=== PATIENT | female | born 1955 | race Caucasian/White ===

== ENCOUNTER 2016-07-01 12:33 | Emergency (ER) | payer OTHER ==
[2016-07-01 12:36] VITALS: TEMP 98; BMI 25.0
[2016-07-01] MEDS ORDERED: ONDANSETRON 4 MG/2 ML VIAL IVPUSH ONE (13:19)
[2016-07-01] MEDS ORDERED: SODIUM CHLORIDE 1,000 ML IV STA ×2 (13:19→16:45)
--- NOTE | 2016-07-01 13:19 | PDOC ---
History of Present Illness - General History Source: Patient Exam Limitations: No Limitations - History of Present Illness Initial Comments: 07/01/16 13:27 The patient is a 60 year old female, with no significant past medical history, who presents to the emergency department complaining of dizziness and nausea since approximately 11:45. The patient reports she was sitting eating a meal when suddenly she began to feel dizzy and nauseous. Patient reports vomiting secondary to nausea and dizziness. She describes her dizziness as if the room was spinning. She reports her symptoms are exacerbated when turning her head. The patient does not report any changes in vision or headache. She denies any abdominal pain, diarrhea, constipation, or changes in urination patterns. The patient denies any chest pain, shortness of breath, diaphoresis, or palpitations. Allergies: None reported. Past Surgical History: None reported. Social History: Non-smoker. Denies alcohol or drug use. PCP: Dr. Ness <Chance Black - Last Filed: 07/01/16 13:51> <Faye Luciano - Last Filed: 07/04/16 07:32> - General Chief Complaint: Lightheaded Stated Complaint: DIZZINESS, VOMITING Time Seen by Provider: 07/01/16 12:52 Past History <Chance Black - Last Filed: 07/01/16 13:51> - Past Medical History Anemia: No Asthma: No Cancer: No Cardiac Disorders: No HTN: Yes (?) - Surgical History Abdominal Surgery: No Appendectomy: No Cardiac Surgery: No Cholecystectomy: No - Psycho/Social/Smoking Cessation Hx Anxiety: No Suicidal Ideation: No Smoking Status: No Smoking History: Never smoked Number of Cigarettes Smoked Daily: 0 Hx Alcohol Use: No Drug/Substance Use Hx: No Substance Use Type: None <Faye Luciano - Last Filed: 07/04/16 07:32> - Past Medical History Allergies/Adverse Reactions: Allergies Allergy/AdvReac Type Severity Reaction Status Date / Time No Known Allergies Allergy Verified 07/01/16 12:36 Home Medications: Ambulatory Orders Quetiapine Fumarate [Seroquel] 200 mg PO BID 11/03/11 Risperidone [Risperdal M-Tab] 2 mg PO DAILY 11/03/11 Zolpidem Tartrate [Ambien] 10 mg PO DAILY 11/03/11 Cephalexin [Keflex] 500 mg PO BID #14 capsule 07/01/16 Diazepam [Valium] 5 mg PO Q8H PRN #9 tablet MDD 3 tabs 07/01/16 Review of Systems - Review of Systems Able to Perform ROS?: Yes Comments:: 07/01/16 13:28 GENERAL/CONSTITUTIONAL: No fever or chills. No weakness. HEAD, EYES, EARS, NOSE AND THROAT: No change in vision. No ear pain or discharge. No sore throat. CARDIOVASCULAR: No chest pain or shortness of breath. RESPIRATORY: No cough, wheezing, or hemoptysis. GASTROINTESTINAL: Yes: +nausea, +vomiting. No diarrhea or constipation. GENITOURINARY: No dysuria, frequency, or change in urination. MUSCULOSKELETAL: No joint or muscle swelling or pain. No neck or back pain. SKIN: No rash NEUROLOGIC: Yes: +dizziness, +vertigo. No headache, loss of consciousness, or change in strength/sensation. ENDOCRINE: No increased thirst. No abnormal weight change. HEMATOLOGIC/LYMPHATIC: No anemia, easy bleeding, or history of blood clots. ALLERGIC/IMMUNOLOGIC: No hives or skin allergy. <Chance Black - Last Filed: 07/01/16 13:51> *Physical Exam - Vital Signs Last Vital Signs Temp Pulse Resp BP Pulse Ox 98.0 F 73 20 156/102 96 07/01/16 12:34 07/01/16 12:34 07/01/16 12:34 07/01/16 12:34 07/01/16 12:34 - Physical Exam Comments: 07/01/16 13:28 GENERAL: Patient appears uncomfortable and covering her eyes. Symptoms elicited by turning head. Awake, alert, and fully oriented. HEAD: No signs of trauma EYES: PERRLA, EOMI, sclera anicteric, conjunctiva clear ENT: Auricles normal inspection, hearing grossly normal, nares patent, oropharynx clear without exudates. Dry mucosa. TMs normal bilaterally NECK: Normal ROM, supple, no lymphadenopathy, JVD, or masses LUNGS: Breath sounds equal, clear to auscultation bilaterally. No wheezes, and no crackles HEART: Regular rate and rhythm, normal S1 and S2, no murmurs, rubs or gallops ABDOMEN: Soft, nontender, normoactive bowel sounds. No guarding, no rebound. No masses EXTREMITIES: Normal range of motion, no edema. No clubbing or cyanosis. No cords, erythema, or tenderness NEUROLOGICAL: Cranial nerves II through XII grossly intact. Normal speech, normal gait SKIN: Warm, Dry, normal turgor, no rashes or lesions noted. <Chance Black - Last Filed: 07/01/16 13:51> - Vital Signs Last Vital Signs Temp Pulse Resp BP Pulse Ox 98.0 F 73 20 156/102 96 07/01/16 12:34 07/01/16 12:34 07/01/16 12:34 07/01/16 12:34 07/01/16 12:34 <Faye Luciano - Last Filed: 07/04/16 07:32> Heart Score/ECG Review - ECG Impressions Comment:: EKG read 12:56- NSR 69 bpm, no acute ST/T changes <Faye Luciano - Last Filed: 07/04/16 07:32> ED Treatment Course - LABORATORY CBC & Chemistry Diagram: 07/01/16 13:20 07/01/16 13:20 <Chance Black - Last Filed: 07/01/16 13:51> - LABORATORY CBC & Chemistry Diagram: 07/01/16 13:20 07/01/16 13:20 <Faye Luciano - Last Filed: 07/04/16 07:32> Medical Decision Making - Medical Decision Making Pt with BPPV, improved with zofran and meclizine, but incomplete resolution of symptoms. She improved significantly with valium. Treated for UTI. Stable for DC home. <Faye Luciano - Last Filed: 07/04/16 07:32> *DC/Admit/Observation/Transfer - Attestations Scribe Attestion: 07/01/16 13:29 Documentation prepared by Chance Black, acting as manager medical affairs for Faye Luciano MD. <Chance Black - Last Filed: 07/01/16 13:51> - Discharge Dispostion Admit: No <Faye Luciano - Last Filed: 07/04/16 07:32> Diagnosis at time of Disposition: Vertigo - Discharge Dispostion Disposition: HOME Condition at time of disposition: Improved - Prescriptions Prescriptions: Cephalexin [Keflex] 500 mg PO BID #14 capsule Diazepam [Valium] 5 mg PO Q8H PRN #9 tablet MDD 3 tabs PRN Reason: Vertigo - Referrals Referrals: Christiano Ness MD [Primary Care Provider] - - Patient Instructions Printed Discharge Instructions: DI for Vertigo, DI for Urinary Tract Infection (UTI) Print Language: LITHUANIAN
[2016-07-01] MEDS ORDERED: ONDANSETRON 4 MG/2 ML VIAL ONE (13:24)
[2016-07-01 13:27] LABS: EOSINOPHIL 3.1 % (0-4.5); MCH 30.9 pg (25.7-33.7); MCHC 34.4 g/dl (32.0-36.0); MEAN CELL VOLUME 89.8 fl (80-96); MEAN PLT VOLUME 8.2 fl (7.5-11.1); NEUTROPHILS 42.2 % (42.8-82.8); PLATELET COUNT 218 K/MM3 (134-434); WHITE BLOOD COUNT 10.4 K/mm3 (4.0-10.0)
[2016-07-01 13:52] LABS: ALBUMIN 4.2 g/dl (3.4-5.0); ANION GAP 13 (8-16); BILIRUBIN,TOTAL 0.6 mg/dL (0.2-1.0); CO2 23 mmol/L (21-32); CREATININE 0.9 mg/dL (0.55-1.02); GLUCOSE,RANDOM 122 mg/dL (74-106); SGOT/AST 67 U/L (15-37); SGPT/ALT 65 U/L (12-78); TOT PROT 7.8 g/dl (6.4-8.2)
[2016-07-01 13:53] LABS: ALK PHOS 136 U/L (45-117)
[2016-07-01] MEDS ORDERED: MECLIZINE HCL 25 MG TABLET (FP) ONE (15:48)
[2016-07-01] MEDS ORDERED: MECLIZINE HCL 25 MG TABLET (FP) PO ONE (15:48)
[2016-07-01 16:39] LABS: URINE APPEARANCE CLEAR; URINE BILIRUBIN NEGATIVE (NEGATIVE); URINE BLOOD NEGATIVE (NEGATIVE); URINE COLOR STRAW; URINE GLUCOSE (UA) NEGATIVE (NEGATIVE); URINE KETONE NEGATIVE (NEGATIVE); URINE NITRITE NEGATIVE (NEGATIVE); URINE PROTEIN NEGATIVE (NEGATIVE); URINE UROBILINOGEN NEGATIVE E.U./dl (0.2-1.0)
[2016-07-01 16:40] LABS: URINE LEUK ESTERASE 3+ (NEGATIVE)
[2016-07-01 16:42] LABS: URINE RBC 4 /hpf (0-3); URINE WBC 80 /hpf (3-5)
[2016-07-01] MEDS ORDERED: CEFTRIAXONE 1 GM in DEXTROSE 5%-WATER - 50 ML IVPB ONE (16:45)
[2016-07-01] MEDS ORDERED: CEFTRIAXONE 50 ML ONE (16:47)
[2016-07-01] MEDS ORDERED: diazePAM 5 MG TABLET PO ONE (17:42)
[2016-07-01] MEDS ORDERED: diazePAM 5 MG TABLET ONE (18:05)
[2016-07-01 18:56] VITALS: BP 144/99; PULSE 70
--- NOTE | 2016-07-03 13:39 | EKG ---
Test Reason : Blood Pressure : / mmHG Vent. Rate : 069 BPM Atrial Rate : 069 BPM P-R Int : 174 ms QRS Dur : 086 ms QT Int : 418 ms P-R-T Axes : 041 026 042 degrees QTc Int : 447 ms NORMAL SINUS RHYTHM NORMAL ECG WHEN COMPARED WITH ECG OF 18-DEC-2002 13:12, NO SIGNIFICANT CHANGE WAS FOUND Confirmed by BARRON GREENBERG MD ([id number]) on 07/03/2016 1:39:10 PM Referred By: Confirmed By:BARRON GREENBERG MD
== END 2016-07-01 19:11 | disposition home or self-care (01) ==
LOC: JER 12:33
PROC: 3E03329 Introduction of Other Anti-infective into Peripheral Vein, Percutaneous Approach (ICD-10-PCS; principal; 2016-07-01)
PROC: 3E033GC Introduction of Other Therapeutic Substance into Peripheral Vein, Percutaneous Approach (ICD-10-PCS; 2016-07-01)
DX: N39.0 Urinary tract infection, site not specified (principal); R11.2 Nausea with vomiting, unspecified
CPT/HCPCS: 36415; 80053; 81003; 81015; 85025; 93005; 93010; 99283-25

== ENCOUNTER 2019-04-10 07:18 | Emergency (ER) | payer OTHER ==
[2019-04-10 07:36] VITALS: BP 128/67; PULSE 79; TEMP 98.1; BMI 30.7
--- NOTE | 2019-04-10 07:54 | PDOC ---
History of Present Illness - General Chief Complaint: Pain Stated Complaint: PAIN RIGHT UPPER BREAST AREA Time Seen by Provider: 04/10/19 07:38 History Source: Patient Exam Limitations: Clinical Condition - History of Present Illness Initial Comments: 04/10/19 07:58 Patient with no significant past medical history present with complaint of one day history of burning sensation to lateral aspect of right breast radiating to right upper back since yesterday. Patient reported feeling no tingling sensation along the line of the lateral aspect of right breast radiating to right upper back with itching. Denies any rash, breast pain, fever, chills. Denies any other symptoms. Report last mammogram 5 months ago which was normal. Denies any other symptoms Is this a multiple visit Asthma Patient?: No Timing/Duration: 24 hours Past History - Past Medical History Allergies/Adverse Reactions: Allergies Allergy/AdvReac Type Severity Reaction Status Date / Time No Known Allergies Allergy Verified 07/01/16 12:36 Home Medications: Ambulatory Orders Quetiapine Fumarate [Seroquel] 200 mg PO HS 11/03/11 Risperidone [Risperdal M-Tab] 2 mg PO HS 11/03/11 Zolpidem Tartrate [Ambien] 10 mg PO HS PRN 11/03/11 Rosuvastatin Calcium [Crestor] 5 mg PO HS 04/10/19 Valacyclovir HCl [Valtrex -] 1,000 mg PO TID 7 Days #21 tablet 04/10/19 predniSONE [Deltasone -] 40 mg PO DAILY #5 tablet 04/10/19 Anemia: No Asthma: No Cancer: No Cardiac Disorders: No COPD: No HTN: Yes (?) Psychiatric Problems: Yes - Surgical History Abdominal Surgery: No Appendectomy: No Cardiac Surgery: No Cholecystectomy: No - Psycho Social/Smoking Cessation Hx Smoking Status: No Smoking History: Never smoked Number of Cigarettes Smoked Daily: 0 Hx Alcohol Use: No Drug/Substance Use Hx: No Substance Use Type: None Review of Systems - Review of Systems Able to Perform ROS?: Yes Is the patient limited Greenlandic proficient: No Constitutional: No: Chills, Fever, Malaise HEENTM: No: Symptoms Reported, See HPI, Eye Pain, Blurred Vision, Tearing, Recent change in vision, Double Vision, Cataracts, Ear Pain, Ocular Prothesis, Ear Discharge, Nose Pain, Nose Congestion, Tinnitus, Nose Bleeding, Hearing Loss , Throat Pain, Throat Swelling, Mouth Pain, Dental Problems, Difficulty Swallowing, Mouth Swelling, Other Respiratory: No: Symptoms reported, See HPI, Cough, Orthopnea, Shortness of Breath, SOB with Exertion, SOB at Rest, Stridor, Wheezing, Productive cough, Hemoptysis, Other Cardiac (ROS): No: Symptoms Reported, See HPI, Chest Pain, Edema, Irregular Heart Rate, Lightheadedness, Palpitations, Syncope, Chest Tightness, Other ABD/GI: No: Symptoms Reported, See HPI, Nausea, Vomiting Musculoskeletal: Yes: Symptoms Reported, See HPI, Muscle Pain (burning sensation to right side of lateral part of right breast) Integumentary: Yes: Symptoms Reported, See HPI. No: Rash Neurological: Yes: Symptoms reported, See HPI, Tingling (lateral aspect of right breast radiating to upper back). No: Paresthesia, Pre-Existing Deficit, Unsteady Gait All Other Systems: Reviewed and Negative *Physical Exam - Vital Signs Last Vital Signs Temp Pulse Resp BP Pulse Ox 98.1 F 79 16 128/67 95 04/10/19 07:29 04/10/19 07:29 04/10/19 07:29 04/10/19 07:29 04/10/19 07:29 - Physical Exam 04/10/19 08:03 GENERAL: Well developed, well nourished. Awake and alert. No acute distress. HEENT: Normocephalic, atraumatic. PERRLA, EOMI. No conjunctival pallor. Sclera are non-icteric. Moist mucous membranes. Oropharynx is clear. NECK: Supple. Full ROM. CARDIOVASCULAR: Regular rate and rhythm. No murmurs, rubs, or gallops. Distal pulses are 2+ and symmetric. PULMONARY: No evidence of respiratory distress. Lungs clear to auscultation bilaterally. No wheezing, rales or rhonchi. ABDOMINAL: Soft. Non-tender. Non-distended. No rebound or guarding. No organomegaly. Normoactive bowel sounds. MUSCULOSKELETAL Normal range of motion at all joints. No tenderness to right breast or right upper back. SKIN: Warm and dry. Normal capillary refill. No rashes. No visible lesions. Mild excoriation to skin of lateral aspect of right breast and right upper back from scratching. No open wounds. NEUROLOGICAL: Alert, awake, appropriate. Gait is normal without ataxia. PSYCHIATRIC: Cooperative. Good eye contact. Appropriate mood General Appearance: Yes: Nourished, Appropriately Dressed. No: Apparent Distress Medical Decision Making - Medical Decision Making 04/10/19 07:59 Patient with no significant past medical history present with complaint of one day history of burning sensation to lateral aspect of right breast radiating to right upper back since yesterday. Patient reported feeling no tingling sensation along the line of the lateral aspect of right breast radiating to right upper back with itching. Denies any rash, breast pain, fever, chills. Denies any other symptoms. Report last mammogram 5 months ago which was normal. Denies any other symptoms Exam significant for mild excoriation to skin of lateral aspect of right breast from scratching and right upper back. No visible lesion or rash. No tenderness to right breast or skin of right breast or upper back. Symptoms likely oncoming herpes zoster. Patient will be treated on Valtrex 1000mg 3 times daily for a week and prednisone with PCP follow-up Discharge - Discharge Information Problems reviewed: Yes Clinical Impression/Diagnosis: Zoster Qualifiers: Herpes zoster complications: without complications Qualified Code(s): B02.9 - Zoster without complications Condition: Stable Disposition: HOME - Admission No - Additional Discharge Information Prescriptions: predniSONE [Deltasone -] 40 mg PO DAILY #5 tablet Valacyclovir HCl [Valtrex -] 1,000 mg PO TID 7 Days #21 tablet - Follow up/Referral Referrals: Baylee Jiang MD [Primary Care Provider] - - Patient Discharge Instructions Patient Printed Discharge Instructions: DI for Shingles Additional Instructions: Your symptoms likely caused by oncoming shingles. Take prescribed medication as prescribed. Follow-up with primary care as needed - Post Discharge Activity Work/Back to School Note: Back to Work
== END 2019-04-10 08:00 | disposition home or self-care (01) ==
LOC: JER 07:18
DX: B02.9 Zoster without complications (principal); F99 Mental disorder, not otherwise specified
CPT/HCPCS: 99283-25

== ENCOUNTER 2019-05-23 15:52 | Emergency (ER) | payer OTHER ==
[2019-05-23 16:09] VITALS: BP 132/91; PULSE 90; TEMP 98.8
--- NOTE | 2019-05-23 16:11 | PDOC ---
Rapid Medical Evaluation Time Seen by Provider: 05/23/19 16:06 Medical Evaluation: Allergies Allergy/AdvReac Type Severity Reaction Status Date / Time No Known Allergies Allergy Verified 07/01/16 12:36 05/23/19 16:06 HPI: COVID-19 CDC guideline data points: The patient is a 63yo F presents with suspected COVID-19 with associated symptoms of subjective fever without comorbidities. ROS: NEGATIVE: difficulty breathing, shortness of breath, chest pain, lightheadedness, dizziness, nausea, vomiting and diarrhea. Other 12 point ROS reviewed and negative. Exam: General: NAD, Well-Appearing, Awake, Alert Oriented x3. Vital signs stable. ENT: No rhinorrhea or nasal congestion. Neck: FROM, no midline tenderness. Lungs: Clear to auscultation bilaterally without wheezes, rhonchi or rales. Normal excursion. Patient is able to speak in full sentences. Heart: HR-90 Regular rhythm, S1-S2 present, no murmurs rubs or gallops. Abdomen: Non-distended. MSK/Extremities: No decrease ROM, No obvious deformities. No obvious cyanosis noted. Neuro: Normal Gait, Cranial Nerves II through XII Grossly Intact. Skin: No obvious rashes, bruising. Color Normal Appearing. Assessment/Plan: fever Patient has no history and denies recent travel and known COVID exposure. Patient does not meet testing criteria at this time. ASSESSMENT: Denies recent travel and known Covid exposure. Treatment: T-98.8 Discharge home to f/u with PMD. Discharge Disposition - Diagnosis Fever Qualifiers: Fever type: unspecified Qualified Code(s): R50.9 - Fever, unspecified - Discharge Dispostion Disposition: HOME Condition at time of disposition: Stable Decision to Admit order: No - Referrals - Patient Instructions Printed Discharge Instructions: [facility]-Coronavirus Instructions, [facility] COVID-19 Isolation Protocol Additional Instructions: You were seen for your cough and possible Coronavirus (COVID-19) Please call the [facility] testing center to make an appointment at or you can call [facility] at from 8:30 AM to 6 PM; or you can visit the [facility] website: [email or web address] for more information about testing at the [facility]. Take Tylenol 650 mg every 6 hours as needed for fever or pain. You may take Robitussin or other [id number] cough syrup. Follow the dosing instructions on the bottle. Warm tea, honey, and salt water gargles may help your symptoms. Please take precautions and self quarantine for 2 weeks and follow-up with your primary care doctor and the Department of Health. Return to the nearest emergency department for shortness of breath, difficulty breathing, chest pain, or if you have any changes in your symptoms. - Post Discharge Activity
== END 2019-05-23 17:04 ==
LOC: JER 15:52
DX: R50.9 Fever, unspecified (principal)
CPT/HCPCS: 99282-25

== ENCOUNTER 2019-09-02 13:27 | Emergency (ER) | payer OTHER ==
[2019-09-02 13:32] VITALS: BP 156/82; PULSE 73; TEMP 98.4; BMI 30.9
[2019-09-02] MEDS ORDERED: NAPROXEN 500 MG TABLET PO ONE (14:12)
[2019-09-02] MEDS ORDERED: METHOCARBAMOL 500 MG TABLET PO ONE (14:12)
[2019-09-02] MEDS ORDERED: NAPROXEN 500 MG TABLET ONE (14:13)
[2019-09-02] MEDS ORDERED: METHOCARBAMOL 500 MG TABLET ONE (14:13)
--- NOTE | 2019-09-02 14:20 | PDOC ---
History of Present Illness - General Chief Complaint: Pain, Acute Stated Complaint: RT LEG PAIN Time Seen by Provider: 09/02/19 13:35 History Source: Patient Exam Limitations: Clinical Condition - History of Present Illness Initial Comments: 09/02/19 14:17 Patient with no significant past medical history present with complaint of cramping pain to medial aspect of right thigh muscle status post going downstairs and overextending right leg. Patient reported increased pain to medial side of right calf muscle with ambulation. Denies fall. Patient did not take anything for symptoms. Denies any other symptoms Occurred: reports: this morning Past History - Medical History Allergies/Adverse Reactions: Allergies Allergy/AdvReac Type Severity Reaction Status Date / Time No Known Allergies Allergy Verified 09/02/19 14:12 Home Medications: Ambulatory Orders Quetiapine Fumarate [Seroquel] 200 mg PO HS 11/03/11 Risperidone [Risperdal M-Tab] 2 mg PO HS 11/03/11 Zolpidem Tartrate [Ambien] 10 mg PO HS PRN 11/03/11 Rosuvastatin Calcium [Crestor] 5 mg PO HS 04/10/19 Valacyclovir HCl [Valtrex -] 1,000 mg PO TID 7 Days #21 tablet 04/10/19 predniSONE [Deltasone -] 40 mg PO DAILY #5 tablet 04/10/19 Meloxicam 7.5 mg PO BID PRN #12 tablet 09/02/19 Methocarbamol [Robaxin -] 500 mg PO BID PRN #10 tablet 09/02/19 Anemia: No Asthma: No Cancer: No Cardiac Disorders: No COPD: No HTN: Yes (?) Psychiatric Problems: Yes - Surgical History Abdominal Surgery: No Appendectomy: No Cardiac Surgery: No Cholecystectomy: No - Immunization History Immunization Up to Date: No - Psycho-Social/Smoking History Smoking Status: No Smoking History: Never smoked Have you smoked in the past 12 months: No Number of Cigarettes Smoked Daily: 0 Information on smoking cessation initiated: No - Substance Abuse Hx (Audit-C & DAST Scrn) How often the patient has a drink containing alcohol: Never Score: In Men: 4 or > Positive; In Women: 3 or > Positive: 0 Screen Result (Pos requires Nsg. Audit-10AR): Negative In the last yr the pt used illegal drug/Rx for NonMed reason: No Score: Yes response is considered Positive: 0 Screen Result (Positive result requires Nsg. DAST-10): Negative Review of Systems - Review of Systems Able to Perform ROS?: Yes Is the patient limited Mosotho proficient: No Constitutional: No: Chills, Fever, Malaise HEENTM: No: Symptoms Reported Respiratory: No: Symptoms reported, See HPI, Cough, Orthopnea, Shortness of Breath, SOB with Exertion, SOB at Rest, Stridor, Wheezing, Productive cough, Hemoptysis, Other Cardiac (ROS): No: Symptoms Reported, See HPI, Chest Pain, Edema, Irregular Heart Rate, Lightheadedness, Palpitations, Syncope, Chest Tightness, Other ABD/GI: No: Symptoms Reported Musculoskeletal: Yes: Symptoms Reported, See HPI, Muscle Pain (Right calf muscle pain). No: Joint Swelling, Joint Stiffness Integumentary: No: Symptoms Reported, Bruising, Change in Color, Flushing Neurological: No: Symptoms reported, Numbness, Paresthesia, Tingling, Weakness All Other Systems: Reviewed and Negative *Physical Exam - Vital Signs Last Vital Signs Temp Pulse Resp BP Pulse Ox 98.4 F 73 16 156/82 97 09/02/19 13:29 09/02/19 13:29 09/02/19 13:29 09/02/19 13:29 09/02/19 13:29 - Physical Exam 09/02/19 14:20 GENERAL: Well developed, well nourished. Awake and alert in mild acute distress. CARDIOVASCULAR: Regular rate and rhythm. No murmurs, rubs, or gallops. PULMONARY: No evidence of respiratory distress. Lungs clear to auscultation bilaterally. No wheezing, rales or rhonchi. MUSCULOSKELETAL : mild tenderness over posterior medial aspect of right calf muscle. No tenderness to lateral aspect of calf muscle. Negative Homans sign. Negative Lockett test. No swelling to calf muscle. No bony deformities EXTREMITIES: No cyanosis. No clubbing. No edema. Mild tenderness to medial aspect of right calf muscle and no lateral calf tenderness. SKIN: Warm and dry. Normal capillary refill. No rashes. No increased warmth or skin erythema to right leg NEUROLOGICAL: Alert, awake, appropriate. No motor deficits in the lower extremities. Gait is normal without ataxia. PSYCHIATRIC: Cooperative. Good eye contact. Appropriate mood and affect. General Appearance: Yes: Nourished, Appropriately Dressed, Mild Distress ED Treatment Course - RADIOLOGY Radiology Studies Ordered: Category Date Time Status LEG TIB/FIB-RIGHT [RAD] Stat Radiology 09/02/19 14:12 Ordered - Medications Given in the ED: ED Medications Discontinued Medications Generic Name Dose Route Start Last Admin Trade Name Petersonq PRN Reason Stop Dose Admin Methocarbamol 500 mg 09/02/19 14:12 09/02/19 14:14 Robaxin - PO 09/02/19 14:13 500 mg ONCE ONE Administration Naproxen 500 mg 09/02/19 14:12 09/02/19 14:14 Naprosyn - PO 09/02/19 14:13 500 mg ONCE ONE Administration Medical Decision Making - Medical Decision Making 09/02/19 14:18 Patient with no significant past medical history present with complaint of cramping pain to medial aspect of right thigh muscle status post going downstairs and overextending right leg. Patient reported increased pain to medial side of right calf muscle with ambulation. Denies fall. Patient did not take anything for symptoms. Denies any other symptoms Exam significant for mild tenderness to medial aspect of right calf muscle with no tenderness to lateral aspect. Negative Homans sign. Negative Lockett test. Patient walking with mild limp to right leg from pain. Symptoms likely muscle strain. X-ray of leg ordered to rule out acute abnormality. Naproxen 500 mg p.o. and Robaxin 500 mg p.o. ordered for pain and spasm. Treat based on imaging results 09/02/19 14:30 X-ray of the leg shows no acute abnormality. Patient stable for discharge on naproxen and Robaxin PRN for pain and spasm with orthopedics follow-up as needed Discharge - Discharge Information Problems reviewed: Yes Clinical Impression/Diagnosis: Strain of right calf muscle Condition: Stable Disposition: HOME - Admission No - Additional Discharge Information Prescriptions: Meloxicam 7.5 mg PO BID PRN #12 tablet PRN Reason: calf pain Methocarbamol [Robaxin -] 500 mg PO BID PRN #10 tablet PRN Reason: calf spasm - Follow up/Referral Referrals: Baylee Jiang MD [Primary Care Provider] - - Patient Discharge Instructions Patient Printed Discharge Instructions: DI for Calf Muscle Strain Additional Instructions: X-ray of right leg is normal and shows no acute abnormality. Your pain is likely from muscle strain and spasm. Take prescribed medication as needed for pain and spasm. Do stretching exercise to help with spasm. Apply warm compress as needed to leg. Follow-up with primary care as needed - Post Discharge Activity Work/Back to School Note: Back to Work
== END 2019-09-02 14:29 | disposition home or self-care (01) ==
LOC: JERFT 13:27
DX: S86.111A Strain of other muscle(s) and tendon(s) of posterior muscle group at lower leg level, right leg, initial encounter (principal)
CPT/HCPCS: 73590-TC-RT-FY; 99284-25

== ENCOUNTER 2021-02-24 07:20 | Emergency (ER) | payer OTHER ==
[2021-02-24 07:42] VITALS: BMI 31.3
[2021-02-24 08:00] VITALS: BP 160/98; PULSE 102; TEMP 98.8
[2021-02-24] MEDS ORDERED: valACYclovir HCL 1000 MG TABLET PO ONE (08:00)
[2021-02-24] MEDS ORDERED: valACYclovir HCL 500 MG TABLET (FP) ONE (08:08)
== END 2021-02-24 08:28 | disposition home or self-care (01) ==
LOC: JER 07:20
DX: B02.9 Zoster without complications (principal)
CPT/HCPCS: 99283-25

== ENCOUNTER 2022-09-27 04:12 | Day surgery (SDC) | payer OTHER ==
[2022-09-22 13:38] VITALS: BMI 31.9
[2022-09-27] MEDS ORDERED: PROPOFOL 20 ML ONE (12:04)
[2022-09-27] MEDS ORDERED: HEPARIN NA (PORCINE) 5,000 UNITS/ML 1ML VIAL ONE (12:10)
[2022-09-27] MEDS ORDERED: LIDOCAINE HCL 1%, 10 MG/ML (10ML VIAL) MDV ONE (12:10)
[2022-09-27] MEDS ORDERED: ONDANSETRON 4 MG/2 ML VIAL IVPUSH PRN (12:35)
[2022-09-27] MEDS ORDERED: oxyCODONE HCL 5 MG TABLET PO PRN (12:35)
[2022-09-27] MEDS ORDERED: ACETAMINOPHEN 1000 MG/100 ML BAG IVPB PRN (12:37)
[2022-09-27] MEDS ORDERED: LACTATED RINGERS SOLUTION 1,000 ML IV SCH (12:45)
[2022-09-27] MEDS ORDERED: LIDOCAINE HCL/PF 2% SDV 5ML VIAL ONE (13:03)
[2022-09-27] MEDS ORDERED: MIDAZOLAM HCL 2 MG/2 ML SINGLE DOSE VIAL ONE (13:03)
[2022-09-27] MEDS ORDERED: SUCCINYLCHOLINE CHLORIDE 200 MG/10 ML SYRINGE ONE (13:03)
[2022-09-27] MEDS ORDERED: DEXAMETHASONE SOD PHOSPHATE 4 MG/1 ML VIAL ONE (13:03)
[2022-09-27] MEDS ORDERED: ONDANSETRON 4 MG/2 ML VIAL ONE (13:03)
[2022-09-27] MEDS ORDERED: SEVOFLURANE 250 ML BTL ONE (13:04)
[2022-09-27] MEDS ORDERED: ceFAZolin SODIUM 1 GM VIAL ONE (13:25)
[2022-09-27] MEDS ORDERED: ceFAZolin SODIUM 1 GM VIAL IVPB ONE (13:25)
[2022-09-27] MEDS ORDERED: ACETAMINOPHEN INJECTION 100 ML IVPB ONE (15:06)
[2022-09-27 16:53] VITALS: RESP 18
[2022-09-27 17:26] VITALS: BP 150/79; PULSE 83; TEMP 98.2
== END 2022-09-27 17:30 | disposition home or self-care (01) ==
LOC: JASU-SURG 04:12
PROVIDERS: ATTEND Surgery Vascular Surgery
PROC: 06DY0ZZ Extraction of Lower Vein, Open Approach (ICD-10-PCS; principal; 2022-09-27 12:30)
DX: I83.92 Asymptomatic varicose veins of left lower extremity (principal)
CPT/HCPCS: 88304-TC; 94760; J1644